=== PATIENT | female | born 1970 | race Two or more races ===

== ENCOUNTER 2017-12-22 11:03 | Outpatient (CLI) | payer OTHER | END 2017-12-22 11:14 | disposition home or self-care (01) | LOC: LAB 11:03 | DX: D50.8 Other iron deficiency anemias (principal); E03.8 Other specified hypothyroidism; E78.2 Mixed hyperlipidemia; I11.9 Hypertensive heart disease without heart failure; E56.8 Deficiency of other vitamins; N39.0 Urinary tract infection, site not specified; Z12.11 Encounter for screening for malignant neoplasm of colon; R19.5 Other fecal abnormalities; E55.9 Vitamin D deficiency, unspecified; R80.8 Other proteinuria ==

== ENCOUNTER 2018-05-14 09:15 | Outpatient (CLI) | payer OTHER | END 2018-05-14 09:26 | disposition home or self-care (01) | LOC: NUCLEAR 09:15 | DX: I11.9 Hypertensive heart disease without heart failure (principal) ==